=== PATIENT | female | born 1970 | race Caucasian/White ===

== ENCOUNTER 2021-09-29 02:35 | Outpatient (CLI) | payer OTHER, SELFPAY ==
[2021-09-29 10:42] LABS: ALT 25 U/L (14-59); AST 19 U/L (15-37); Alkaline Phosphatase 71 U/L (46-116); BUN 17 mg/dL (7-18); Bilirubin, Total 0.6 mg/dL (0.2-1.0); CREATININE 0.8 mg/dL (0.55-1.02); Calcium 9.8 mg/dL (8.5-10.1); Calculated LDL 128 mg/dL (<100); Chloride 104 mmol/L (98-107); Cholesterol 212 mg/dL (<200); Glucose 90 mg/dL (74-106); HDL Cholesterol 70 mg/dL (40-60); Potassium 4.7 mmol/L (3.5-5.1); Sodium 140 mmol/L (136-145); Total Protein 6.7 g/dL (6.4-8.2); Triglyceride 72 mg/dL (<150)
== END 2021-09-29 02:36 | disposition home or self-care (01) ==
LOC: LBO 02:35
DX: Z00.00 Encounter for general adult medical examination without abnormal findings (principal); Z13.220 Encounter for screening for lipoid disorders
CPT/HCPCS: 36415; 80053; 80061

== ENCOUNTER 2021-11-03 12:25 | Outpatient (REF) | payer BC, SELFPAY ==
--- NOTE | 2021-11-03 11:20 | PAPFT_PTH ---
PATIENT: Asia Carney LOC: [facility] U#:[id number] AGE/SX: 51/F ROOM: RE11/03/[address]: Ny Conner APRN : 1970 BED: DIS: 11/03/2021 SPEC #: [id number] RECD: 11/03/21 17:56 STATUS: AGGIE REKarthik #: [id number] BHUPINDER: 11/03/21 11:[address]: Ny Conner DEPT: [facility] Cytology RECD BY: Denise Garcia Tissues: 1 - CX/ENDOCX FOR PAP SMEARS Procedures: PAP THIN PREP/UVM Screening HPV DNA PROBE Comments: [id number]
== END 2021-11-03 12:26 | disposition home or self-care (01) ==
LOC: LBN 12:25
DX: Z12.4 Encounter for screening for malignant neoplasm of cervix (principal); Z11.51 Encounter for screening for human papillomavirus (HPV)
CPT/HCPCS: 88142; 87624

== ENCOUNTER 2021-12-23 03:07 | Outpatient (CLI) | payer OTHER, BC, SELFPAY ==
--- NOTE | 2021-12-23 06:15 | DI.MAMMO_ITS ---
Exam(s) MG MAMMO SCREENING 60 MIN DUR EXAM: MG MAMMO SCREENING 60 MIN DUR CLINICAL HISTORY: breast cancer screening,Z12.39 IMPLANTS TECHNIQUE: Bilateral full field digital CC and MLO mammographic images were obtained with 3D tomosyn thesis and utilizing computer aided detection (CAD). COMPARISON: Available for comparison. FINDINGS: Masses/Architectural Distortion: None seen. The patient has bilateral breast implants. Microcalcifications: No suspicious pleomorphic-type are seen. Skin Thickening/Nipple Retraction: None. IMPRESSION: 1. No significant interval change with no specific features of malignancy noted. 2. Unless there is more urgent need, screening mammography is recommended, as per [employer] guidelines. BI-RADS Category 1 - Negative Breast Density - Category C - Heterogeneously dense Breast density category C or D implies that the patient has dense breast tissue. Dense breast tissue is very common and is not abnormal but dense breast tissue can make it harder to find cancer on a ma mmogram. Also, dense breast tissue may increase their breast cancer risk. This information about the result of the mammogram report was provided to the patient to raise their awareness. Use this report when you speak with the patient about their risks for breast cancer, which includes their family hist ory. At that time, you may recommend for more screening tests (Ultrasound or MRI) as they might be us eful based on their risk. A negative radiographic report should not delay biopsy if a dominant or clinically suspicious mass is present. Up to ten percent of cancers are not identified on mammography. A negative report may reinforce clinical impression. Adenosis and dense breasts may obscure an underlying neoplasm. False positive reports average 6 to 10%. Patient will receive a letter notifying them of these results.
--- NOTE | 2021-12-23 06:15 | DI.US_ITS ---
Exam(s) US SOFT TISSUE EXTREMITY EXAM: US SOFT TISSUE EXTREMITY CLINICAL HISTORY: Known Lipoma L ant. should/upper breast - see scan,D17.1. TECHNIQUE: Ultrasound was performed using standard protocol. COMPARISON: No exams were available for comparison FINDINGS: Sonographic assessment utilizing grayscale and color Doppler imaging was performed and targeted to th e area of clinical concern. Submitted images reveal a relatively well-defined 3.9 x 1.5 x 1.5 cm round-slightly ovoid mass which is relatively isoechoic compared to the surrounding musculature of the shoulder.. This is not a cyst . Does not have typical appearance of a lipoma, being less hyperechoic than a atypical lipoma. Exhi bits neutral through transmission. IMPRESSION: As above. Recommend follow-up MRI. DATA REPOSITORY:
== END 2021-12-23 03:27 ==
DX: D17.1 Benign lipomatous neoplasm of skin and subcutaneous tissue of trunk (principal); Z12.31 Encounter for screening mammogram for malignant neoplasm of breast; R92.8 Other abnormal and inconclusive findings on diagnostic imaging of breast
CPT/HCPCS: 76881; 77063; 77067

== ENCOUNTER → 2022-01-17 03:34 | Outpatient (CLI) | payer OTHER, BC, SELFPAY ==
--- NOTE | 2022-01-17 07:30 | DI.MRI_ITS ---
Exam(s) MR CHEST WO/W EXAM: MR CHEST WO/W CLINICAL HISTORY: Previously thought to be a lipoma(outside facility),chest mass,r22.2 TECHNIQUE: Multiplanar multisequence MRI of the left chest wall was performed. CONTRAST MATERIAL: IV Contrast: 14 ML of Dotarem contrast administered. COMPARISON: US US SOFT TISSUE EXTREMITY from 12/23/2021 FINDINGS: A marker was placed on the area of concern. The patient has a left breast implant. Musculature: The muscles show normal signal and size. No significant muscular fatty atrophy. No int ramuscular mass. Bones: The bones show normal signal. No osseous mass is identified. Soft tissues: The subcutaneous fat is of normal signal. There is an ovoid fat signal intensity nonen hancing mass in the subcutaneous tissues corresponding to the palpable abnormality. It measures 1.5 x 1.2 x 1.3 cm its signal characteristics are consistent with a lipoma.No suspicious soft tissue mass es are seen. No significant adenopathy is present. Enhancement: No abnormal enhancing masses are seen. IMPRESSION: 1. 1.5 x 1.2 x 1.3 cm lipoma in the subcutaneous tissues corresponding to the placement of the marker . 2. No suspicious muscular, soft tissue or osseous masses. DATA REPOSITORY:
[2022-01-17] MEDS: Normal Saline Flush 10 ML SYR IVP (12:23)
[2022-01-17] MEDS: Gadoterate meglumine 20 ML VIAL 14 ML IVP (12:23)
== END ==
DX: R93.89 Abnormal findings on diagnostic imaging of other specified body structures (principal); R22.2 Localized swelling, mass and lump, trunk; Z98.82 Breast implant status; D17.1 Benign lipomatous neoplasm of skin and subcutaneous tissue of trunk
CPT/HCPCS: 71552

== ENCOUNTER 2022-02-21 09:31 | Day surgery (SDC) | payer OTHER, BC, SELFPAY ==
--- NOTE | 2022-02-20 12:37 | W.PM.DSUDISC ---
Discharge Plan Disposition Patient Disposition: HOME Condition: Good Discharge Details Reason For Visit: lipoma removal Attending Provider: Dannielle Braswell Primary Care Provider: Ny Conner Home Meds and New Rx's Prescriptions: New tramadol [Ultram] 50 mg tablet 50 mg PO Q6H PRN (Reason: pain (scale score 7-10)) Qty: 7 0RF Rx Instructions: will cause constipation Continued magnesium 250 mg tablet 250 mg PO DAILY 0RF cholecalciferol (vitamin D3) 50 mcg (2,000 unit) capsule 50 mcg PO DAILY 0RF omega 7-hdq-iyh-fish oil [Fish Oil] 1,000 mg (120 mg-180 mg) capsule 1 cap PO DAILY 0RF calcium carbonate [Calcium 500] 500 mg calcium (1,250 mg) tablet,chewable 500 mg PO DAILY 0RF polyethylene glycol 3350 17 gram/dose powder 238 g PO ONCE Qty: 238 0RF Rx Instructions: take per colonoscopy instructions bisacodyl [Dulcolax (bisacodyl)] 5 mg tablet,delayed release (DR/EC) 5 mg PO ONCE Qty: 4 0RF Rx Instructions: take per colonoscopy instructions ibuprofen [Advil] 200 mg tablet See Rx Instructions PO .COMPLEX PRN0RF Rx Instructions: PO PRN; cyanocobalamin (vitamin B-12) 1,000 mcg capsule See Rx Instructions PO DAILY 0RF Rx Instructions: PO daily; ferrous sulfate [Feosol] 325 mg (65 mg iron) tablet See Rx Instructions PO DAILY 0RF Rx Instructions: PO daily; ascorbate calcium (vitamin C) 500 mg tablet See Rx Instructions PO DAILY 0RF Rx Instructions: PO daily; estradiol 0.01 % (0.1 mg/gram) cream 1 g vaginal DAILY Qty: 42.5 6RF Rx Instructions: nightly for 14 days; then 2x per week Discharge Instructions Additional Instructions: Wound Care Instruction Pain Control Use ice!? Ice keeps the swelling down and swelling is what causes pain.? Never apply ice directly to the skin.? Wrap it in a towel or cloth.? Apply ice 20 minutes on and 20 minutes off for pain control.? Use as needed. Take Tylenol 500 mg by mouth with food every 4 hours as needed for pain. Or ibuprofen 600 mg by mouth with food every 6 hours as needed for pain.? Do not take Tylenol if you have a history of heavy drinking, hepatitis C or liver problems.? Do not take ibuprofen if you have a history of stomach ulcers/problems, bleeding problem or kidney issues. You do have a prescription for ultram (which is a mild narcotic) for pain >7. ? Always wash your hands before touching your incision. ? Keep the incision clean, dry, and out of water, keep the incision out of water. ? Do not to pick at the scabs. Scabs help protect the wound. ? You can take a shower in 24 hours and wash the incision with soap and water. Pat dry/don?t scrub. It?s OK to wash around the incision. But don?t spray water directly on it. ? Pat stitches dry if they get wet. Don't rub. ? Check the incision site daily for pain, redness, drainage, swelling, or separation of the incision edges. ? Make sure any clothing that touches the incision is loose-fitting. This will prevent rubbing. If the incision is on the head, keep your child from wearing caps or other head coverings. These may rub against the incision. As your incision heals, the skin may appear pink or red. It may also feel slightly bumpy or raised. This is called a healing ridge. Over time, the color should fade and the raised skin will become less noticeable. ? When to seek medical care Call your healthcare provider right away if you have any of these: ? More pain, redness, swelling, bleeding, or foul-smelling discharge around the incision area ? Fever of 101?F (38.3?C) or higher, or as directed by your child's healthcare provider ? Shaking chills ? Vomiting or nausea that doesn?t go away ? Numbness, coldness, or tingling around the incision area, or changes in skin color ? Opening of the sutures or wound -Stitches or izaiah that come apart or fall out or surgical tape falls off before 7 days, or as directed by your healthcare provider ? ?[facility]: [phone] F/u W/ Dr. Braswell 03/02 @ 11am for suture removal ? Activity:: See above Remove Dressings/Wound Care:: 24 hours Shower/Bathe:: 24 hours Diet:: As Tolerated Discharge Orders Discharge Orders: Discharge Order (Routine); Ordered 02/20/22 Ordered By: Dannielle Braswell
[2022-02-21 09:45] VITALS: PULSE 58; RESP 16; TEMP 36.2; O2SAT 10
--- NOTE | 2022-02-21 16:12 | SOFT_PTH ---
PATIENT: Asia Carney LOC: [facility] U#:[id number] AGE/SX: 51/F ROOM: RE02/21/[address]: Dannielle Braswell : 1970 BED: DIS: 02/21/2022 SPEC #: [id number] RECD: 02/21/22 17:13 STATUS: AGGIE REKarthik #: [id number] BHUPINDER: 02/21/22 16:[address]: Dannielle Braswell DEPT: Surgical Specimen RECD BY: Denise Garcia ENTERED: 02/21/22 17:15 SP TYPE: SOFT OTHR DR: Ny Conner APRN Tissues: 1 - SKIN BIOPSY(SHAVE/PUNCH) 2 - SOFT TISSUE MISC (INC. LIPOMA) Procedures: GROSS AND MICRO LEVEL 3 Comments: [id number]
[2022-02-21] MEDS: Lidocaine 1% Multi-Dose W/EPI 1/100,000 50 ML VIAL (16:30)
[2022-02-21 16:35] VITALS: BP 128/69; PULSE 70; RESP 16; TEMP 36.3; O2SAT 100
--- NOTE | 2022-02-22 16:46 | ROE_ITS ---
Date of service: 02/21/22 Time of Service: 16:46 Operative Note Operative Note DATE OF PROCEDURE: 02/21/22 PRE-OP DIAGNOSIS: Sebaceous cyst and lipoma POST-OP DIAGNOSIS: same PROCEDURE: Excision of posterior left shoulder sebaceous cyst. Excision of anterior left shoulder lipoma. SURGEON: Dannielle Braswell ANESTHESIA TYPE: Local By Surgeon Refer to Anesthesia Record ESTIMATED BLOOD LOSS: 3 PATHOLOGY: other COMPLICATIONS: None Patient was transported to: same day Procedure Description: The patient is here today for excision of the anterior left shoulder lipoma. She also notes that she has a what feels like to be a sebaceous cyst in the posterior aspect of the left shoulder and she would like this removed as well. Informed consent is obtained explaining risks and benefits of the procedure including but not limited to: Bleeding, infection, scarring, recurrence, need for removal of more tissue, reaction to the local anesthetics, poor cosmesis, and other on 4 told complications. Patient was marked in preop area. She is brought to the operative room suite. She is positioned in the prone position. She is prepped and draped in the usual sterile fashion using ChloraPrep scrub solution. Timeout is performed. 5 cc of 1% lidocaine is used to anesthetize the area of the left posterior soft tissue lesion. It is approximately 1.5 x 0.5 cm. 2.5 cm incision is made the lesion is dissected out. It is sent to pathology. The wound is closed with 2 stitches of 3-0 Prolene. Sterile Band- Aid is applied. Patient is then repositioned in the supine position. She is reprepped and draped using a ChloraPrep scrub solution. The lipoma in the left shoulder clavicle pectoral area is attended to next. Is anesthetized with 10 cc of 1% lidocaine. It is approximately 3 x 2 cm. A centimeter incision is made. It is dissected out with a combination of sharp dissection and electrocautery. Cautery is used to provide hemostasis. There appears to be mature lipoma. It is sent for pathology. Deep tissues approximated with 3-0 Vicryl and skin is approximated with 3-0 Prolene. Sterile compression dressing is applied. Patient tolerated procedure well without complication and transferred back to same day surgery. She is given instructions in wound care, activity, warning signs, and she has a follow-up appointment with my clinic in 1 week's time. Please see discharge instructions.
== END 2022-02-21 17:04 | disposition home or self-care (01) ==
PROVIDERS: Visit Provider Surgery
PROC: (CPT 23071; principal; 2022-02-21 13:30)
DX: L72.3 Sebaceous cyst (principal); D17.39 Benign lipomatous neoplasm of skin and subcutaneous tissue of other sites
CPT/HCPCS: 23071; 11402; 88304; 88305

== ENCOUNTER 2022-03-06 07:36 | Day surgery (SDC) | payer OTHER, SELFPAY ==
--- NOTE | 2022-03-06 06:49 | W.COLOREPORT ---
Colonoscopy Report Date of procedure: 03/06/22 Pre-op diagnosis general: Colon Cancer Screening and Family history Post-op diagnosis procedure note: other (cecal polyp) Procedure: Colonoscopy with polypectomy Surgeon: Bonita Genao Anesthesia Type: General:No Airway Estimated blood loss (mL): 3 Pathology: other (cecal polyp) Complications: None Disposition: same day Indications: The patient is here for Colonoscopy pre-op.?She reports? a family history of rectal cancer in her father at the age of 78.?She has not had any bowel habit changes. -Discussed colonoscopy bowel prep as well as the procedure. Discussed possible complications of the procedure to include bleeding, pain, perforation, missed small lesion/polyp, sore throat, aspiration and adverse reaction to the medications. Questions were answered to patient?s satisfaction. No guarantees were implied or given.? Prep: Miralax/Dulcolax Procedure Start Time: 09:05 Procedure End Time: 09:31 Retraction Time: 12 minutes Findings: One small sessile polyp Procedure Description: After informed consent was obtained the patient was taken to the procedure room and placed in a left decubitous position. Monitors were applied and a time out was done. The patients name, date of , procedure, allergies to medications and metal in their body was reviewed. The patient was then sedated. Once sedated and comfortable a rectal exam was done. External exam was normal. Internal exam revealed a normal sphincter tone and no palpable masses. The scope was then introduced and retro-flexed. No internal hemorrhoids, polyps or masses were identified on retro-flexion. The scope was then advanced to the cecum without difficulty. The ileocecal vlave and appendiceal orifice were identified. The prep was adequate. The scope was then slowly retracted over 12 minutes back into the rectum. Polyps were removed with cold forceps in the cecum. There was no diverticulosis noted. The scope was removed and the patient was woken up and taken back to Same day surgery in stable condition. The patient tolerated the procedure well and there were no immediate complications. Follow up: The patient should follow up in 5 years unless they develop changes in bowel habits or other new gastrointestinal complaints.
--- NOTE | 2022-03-06 06:50 | W.PM.DSUDISC ---
Discharge Plan Disposition Patient Disposition: HOME Condition: Good Discharge Details Reason For Visit: Colonoscopy Attending Provider: Bonita Genao Primary Care Provider: Ny Conner Home Meds and New Rx's Prescriptions: Continued magnesium 250 mg tablet 250 mg PO DAILY cholecalciferol (vitamin D3) 50 mcg (2,000 unit) capsule 50 mcg PO DAILY omega 0-efu-hqa-fish oil [Fish Oil] 1,000 mg (120 mg-180 mg) capsule 1 cap PO DAILY calcium carbonate [Calcium 500] 500 mg calcium (1,250 mg) tablet,chewable 500 mg PO DAILY ibuprofen [Advil] 200 mg tablet See Rx Instructions PO .COMPLEX PRN Rx Instructions: PO PRN; cyanocobalamin (vitamin B-12) 1,000 mcg capsule See Rx Instructions PO DAILY Rx Instructions: PO daily; ferrous sulfate [Feosol] 325 mg (65 mg iron) tablet See Rx Instructions PO DAILY Rx Instructions: PO daily; ascorbate calcium (vitamin C) 500 mg tablet See Rx Instructions PO DAILY Rx Instructions: PO daily; estradiol 0.01 % (0.1 mg/gram) cream 1 g vaginal DAILY Qty: 42.5 6RF Rx Instructions: nightly for 14 days; then 2x per week Discontinued polyethylene glycol 3350 17 gram/dose powder 238 g PO ONCE Qty: 238 0RF Rx Instructions: take per colonoscopy instructions bisacodyl [Dulcolax (bisacodyl)] 5 mg tablet,delayed release (DR/EC) 5 mg PO ONCE Qty: 4 0RF Rx Instructions: take per colonoscopy instructions Discharge Instructions Instructions: Colorectal Polyps (DC) Additional Instructions: Findings: One small polyp Follow up: 5 years Please call if you develop: fevers >101.5 Nausea or Vomiting Abdominal pain that is not transient Rectal bleeding that is more then a tbsp A hard abdomen and inability to pass gas DAY SURGERY UNIT POST ENDOSCOPY INSTRUCTIONS Instructions for everyone who is given Anesthesia: For your safety, please do the following for the next 24 Hours: a. Do not drive or operate dangerous equipment b. Do not drink alcohol beverages or use any recreational drugs for the first 24 hours or while taking pain medications. The medications in your body may have a reaction that can be dangerous. c. Do not make any important decisions or sign any important papers 1. Generally there are no restrictions on your activity after a day or so has gone by, but you may feel a bit fatigued for a few days. 2. After you arrive home you may have a light meal and return to a normal diet as you can tolerate it without feeling sick to your stomach. 3. After surgery, you may feel pain or discomfort. This should be only transient, but if it persists please contact your doctor. 4. If there are any questions regarding the findings of your procedure, please feel free to contact your doctor. 6. If you are unable to contact your doctor with a problem, contact the hospital at [phone]. 7. Continue all your regular medications unless directed otherwise. I understand the above instructions and have no questions. Signature of Patient or Responsible Adult Escort Date/Time Name of Responsible Adult Escort Signature of Nurse Date/Time Activity:: Activity as Tolerated Diet:: As Tolerated Discharge Orders Discharge Orders: Discharge Order (Routine); Ordered 03/06/22 Ordered By: Bonita Genao
[2022-03-06 07:58] VITALS: BP 116/71; PULSE 57; RESP 16; TEMP 36.7; O2SAT 99
[2022-03-06] MEDS: Lactated Ringers 1,000 ML 80 ML IV (08:25)
--- NOTE | 2022-03-06 08:30 | W.ANESPRE ---
General Info Date of Service Date Performed: 03/06/22 Height: 5 ft 7 in Weight: 65.4 kg Body Mass Index (BMI): 22.6 Surgical Procedure: Operation Date: 03/06/22 10:20 Proposed Procedure Side Surgeon p Colonoscopy Bonita Genao MD Meds Allergies and Home Medications Allergies Allergy/AdvReac Type Severity Reaction Status Date / Time No Known Allergies Allergy Unverified 03/03/22 10:18 Home Medication Medication Instructions Recorded ascorbate calcium (vitamin C) 500 See Rx Instructions PO DAILY 08/01/21 mg tablet cyanocobalamin (vitamin B-12) See Rx Instructions PO DAILY 08/01/21 1,000 mcg capsule ferrous sulfate 325 mg (65 mg See Rx Instructions PO DAILY 08/01/21 iron) tablet (Feosol) ibuprofen 200 mg tablet (Advil) See Rx Instructions PO .COMPLEX PRN 08/01/21 estradiol 0.01% (0.1 mg/gram) 1 g vaginal DAILY CREAM for 11/11/21 vaginal cream vaginal atrophy #42.5 grams bisacodyl 5 mg tablet,delayed 5 mg PO ONCE colonscopy bowel prep 02/17/22 release (Dulcolax (bisacodyl)) #4 tabs calcium carbonate 500 mg calcium 500 mg PO DAILY 02/17/22 (1,250 mg) chewable tablet (Calcium 500) cholecalciferol (vitamin D3) 50 50 mcg PO DAILY 02/17/22 mcg (2,000 unit) capsule magnesium 250 mg tablet 250 mg PO DAILY 02/17/22 omega 1-ltj-dzf-fish oil 1,000 mg 1 cap PO DAILY 02/17/22 (120 mg-180 mg) capsule (Fish Oil) polyethylene glycol 3350 17 238 g PO ONCE colonoscopy prep 02/17/22 gram/dose oral powder #238 grams Current Visit Medications: Current Medications Generic Name Dose Route Start Last Admin Trade Name Freq PRN Reason Stop Dose Admin Hyoscyamine Sulfate 0.125 mg 03/06/22 06:50 Hyoscyamine 0.125 Mg Sl/Oral/Chew SL DIRECTED PRN Ringer's Solution 1,000 mls @ 80 mls/hr 03/06/22 06:00 03/06/22 08:25 IV 04/02/22 23:59 80 mls/hr INFUSION PELON Administration IV Miscellaneous Supplies 1 each 03/06/22 06:00 Iv Access IV 04/02/22 23:59 DIRECTED PELON Ondansetron HCl 4 mg 03/06/22 06:50 Ondansetron 4 Mg/2 Ml Vial IVP Q4H PRN PRN Nausea / Vomiting Sodium Chloride 0 ml 03/06/22 06:00 Normal Saline Flush 10 Ml Syr IV 04/02/22 23:59 PRN PRN Sodium Chloride 0 ml 03/06/22 06:00 Normal Saline 10 Ml Vial IJ 04/02/22 23:59 DIRECTED PRN Sterile Water 0 ml 03/06/22 06:00 Water,Injection,Sterile 10 Ml Vial IJ 04/02/22 23:59 DIRECTED PRN PFSH Active Problems Active Problems: Problem Status Onset Code Lipoma of anterior chest wall D17.1 Lesion of subcutaneous tissue L98.9 External auditory canal pruritus L29.9 Impacted cerumen, bilateral H61.23 Screening cholesterol level Z13.220 Annual physical exam Z00.00 Sinusitis J32.9 Family history of colon cancer Z80.0 Colon cancer screening Z12.11 Lipoma of breast D17.1 Anemia D64.9 Premature menopause ~11/19/20 E28.319 Medical History Medical History Comments:: Pt had lipomas x2 removed on 02/21/22. Left Shoulder. Small band aid insitu on back left shoulder, large bandaid on front left shoulder. OK to lie on left side, with care. Surgical History Surgical History History of augmentation mammoplasty (~10/15/00) Tobacco Smoking/Tobacco Use Status: Never Passive smoking exposure: Yes Second hand exposure: Yes Alcohol Alcohol Intake: current Alcohol intake frequency: a few times a month Substance Use Substance use type: does not use Vital Signs and Lab Results Vital Signs Most Recent Vital Signs in EMR: Most Recent Vital Signs Temp Pulse Resp BP Pulse Ox 36.7 C 57 L 16 116/71 99 03/06/22 07:58 03/06/22 07:58 03/06/22 07:58 03/06/22 07:58 03/06/22 07:58 Lab Results Blood Type / Crossmatch: No Data to Display Complete Blood Count: No Data to Display Complete Metabolic Panel: No Data to Display Liver Function Panel: No Data to Display Coagulation Panel: No Data to Display Cardiac Panel: No Data to Display Arterial Blood Gas: No Data to Display Venous Blood Gas: No Data to Display Pancreas Panel: No Data to Display Thyroid Panel: No Data to Display Infectious Disease: No Data to Display Blood Cultures: No Data to Display Toxicology Panel: No Data to Display Panel: No Data to Display Anesthesia Assessment and Plan Anesthesia History Personal History: No History of Anesthesia Complications Family History: No Family History of Anesthesia Complications Exercise Tolerance Exercise Tolerance: Metabolic Equivalents>4 Pertinent Negatives Pertinent Negatives: No Symptoms of GERD, No Major Cardiovascular Symptoms or Complaints, No Major Pulmonary Symptoms or Complaints and No History of CVA/TIA Cardiac & Pulmonary Exam Cardiac Exam: Normal S1/S2 Heart Sounds Pulmonary Exam: Clear Bilateral Breath Sounds Implantable Cardiac Device Does patient have a Pacemaker or an ICD?: No Airway Exam Known Difficult Airway: No Mallampati Class: 2 Mouth Opening: Normal (> 3cm) Thyromental Distance: Greater than 3 cm Neck Range of Motion: Full ROM Neck Circumference: Normal Teeth Condition: Normal Dentition ASA Classification ASA Score: ASA 2 Emergency Case?: No NPO Status NPO Status: NPO Clears >2 hours, Solids >8 hours Status Status: Not Relevant due to Medical History Anesthesia Plan Resuscitation Status: Full Code Anesthesia Technique: General Anesthesia Airway Planned: Natural Airway Monitors Used: Standard Monitors
[2022-03-06 08:51] VITALS: BMI 22.6
--- NOTE | 2022-03-06 09:20 | BOWEL_PTH ---
PATIENT: Asia Carney LOC: [facility] U#:[id number] AGE/SX: 51/F ROOM: RE03/06/[address]: Bonita Genao MD : 1970 BED: DIS: 03/06/2022 SPEC #: [id number] RECD: 03/06/22 12:06 STATUS: AGGIE RE #: [id number] BHUPINDER: 03/06/22 09:[address]: Bonita Genao DEPT: Surgical Specimen RECD BY: Denise Garcia ENTERED: 03/06/22 12:07 SP TYPE: Bowel OTHR DR: Ny Conner APRN Tissues: 1 - BIOPSY BOWEL Procedures: GROSS AND MICRO LEVEL 4 Comments: [id number]
[2022-03-06 09:36] VITALS: BP 110/73; PULSE 44; RESP 16; TEMP 36.1; O2SAT 99
--- NOTE | 2022-03-06 09:46 | W.ANESPOSTOP ---
Postoperative Evaluation Date, Time and Location Date Performed: 03/06/22 Time Performed: 09:36 Patient Location: Day Surgery Unit Vital Signs Most Recent Imported Vital Signs: Most Recent Vital Signs Temp Pulse Resp BP Pulse Ox 36.1 C L 44 L 16 116/71 99 03/06/22 09:36 03/06/22 09:36 03/06/22 07:58 03/06/22 07:58 03/06/22 07:58 Pain Score Most Recent Pain Score: Most Recent Pain Score Pain Level 0 03/06/22 07:58 Assessment Mental Status: Awake (Alert & Oriented to Patient Baseline) Airway and Respiratory Function: Patent airway with normal (patient baseline) respiratory exam Cardiovascular Function: Hemodynamically Stable Hydration Status: Adequately Hydrated Nausea & Vomiting: No Nausea or Vomiting Pain: Pt. Denies Any Pain Peripheral Nerve Block: Patient did not receive a nerve block
[2022-03-06 10:00] VITALS: BP 110/77; PULSE 50; RESP 18; TEMP 35.9; O2SAT 100
== END 2022-03-06 10:30 | disposition home or self-care (01) ==
PROVIDERS: Visit Provider Surgery
PROC: 0DJD8ZZ Inspection of Lower Intestinal Tract, Via Natural or Artificial Opening Endoscopic (ICD-10-PCS; CPT 45378; principal; 2022-03-06 10:15)
DX: Z12.11 Encounter for screening for malignant neoplasm of colon (principal); Z80.0 Family history of malignant neoplasm of digestive organs; K63.5 Polyp of colon
CPT/HCPCS: 45380; 88305

== ENCOUNTER 2023-01-12 03:00 | Outpatient (CLI) | payer OTHER, SELFPAY ==
[2023-01-12 14:00] LABS: ALT 39 U/L (14-59); AST 28 U/L (15-37); Alkaline Phosphatase 75 U/L (46-116); Anion Gap 6.6 mmol/L (3-11); BUN 31 mg/dL (7-18); Bilirubin, Total 0.4 mg/dL (0.2-1.0); CO2 31.4 mmol/L (21.0-32.0); Calcium 9.4 mg/dL (8.5-10.1); Chloride 103 mmol/L (98-107); Estimated GFR 67.78 (mL/min/1.73m2); Glucose 95 mg/dL (74-106); Sodium 141 mmol/L (136-145); Total Protein 6.9 g/dL (6.4-8.2)
== END 2023-01-12 03:01 | disposition home or self-care (01) ==
LOC: LBO 03:00
PROVIDERS: PCP Nurse Practitioner Family; Visit Provider Nurse Practitioner Family
DX: Z00.00 Encounter for general adult medical examination without abnormal findings (principal); D64.9 Anemia, unspecified
CPT/HCPCS: 36415; 80053

== ENCOUNTER 2023-08-06 03:43 | Outpatient (CLI) | payer OTHER, SELFPAY ==
[2023-08-06 12:38] LABS: Anion Gap 7.9 mmol/L (3-11); BUN 24 mg/dL (7-18); CO2 28.1 mmol/L (21.0-32.0); CREATININE 0.9 mg/dL (0.55-1.02); Calcium 9.8 mg/dL (8.5-10.1); Chloride 104 mmol/L (98-107); Estimated GFR 76.44 (mL/min/1.73m2); Glucose 97 mg/dL (74-106); Potassium 4.4 mmol/L (3.5-5.1); Sodium 140 mmol/L (136-145)
== END 2023-08-06 03:44 | disposition home or self-care (01) ==
PROVIDERS: PCP Nurse Practitioner Family; Visit Provider Nurse Practitioner Family
DX: Z13.1 Encounter for screening for diabetes mellitus (principal)
CPT/HCPCS: 36415; 80048

== ENCOUNTER → 2023-11-02 00:30 | Outpatient (CLI) | payer OTHER, SELFPAY ==
--- NOTE | 2023-11-02 07:30 | DI.MAMMO_ITS ---
Exam(s) MG MAMMO SCREENING 60 MIN DUR EXAM: MG MAMMO SCREENING 60 MIN DUR CLINICAL HISTORY: breast cancer screening,implants,z12.39. TECHNIQUE: Bilateral full field digital CC and MLO mammographic images were obtained with 3D tomosyn thesis and utilizing computer aided detection (CAD). COMPARISON: Prior mammograms were reviewed. FINDINGS: Again noted are bilateral retropectoral saline implants. Fibroglandular tissue pattern is again noted be moderately dense. There are no CAD designations. There are no new spiculated masses nor malignant appearing microcalcification groups. There is no significant architectural distortion nor skin thickening-retraction. IMPRESSION: No radiographic evidence of malignancy. BI-RADS Category 1 - Negative Breast Density - Category C - Heterogeneously dense Breast density Category C or D implies that the patient has dense breast tissue. Dense breast tissue can make it harder to find cancer on a mammogram. Dense breast tissue is also associated with an incr eased risk of breast cancer. This information about the result of the mammogram report was provided to the patient to raise their awareness. Use this report when you speak with the patient about their risks for breast cancer, which includes their family history. At that time, you may recommend additional screening tests (Ultrasoun d or MRI) as these tests may add significant information. A negative radiographic report should not delay biopsy if a dominant or clinically suspicious mass is present. Up to ten percent of cancers are not identified on mammography. A negative report may reinforce clinical impression. Adenosis and dense breasts may obscure an underlying neoplasm. False positive reports average 6 to 10%. Patient will receive a letter notifying them of these results.
== END ==
PROVIDERS: PCP Nurse Practitioner Family; Visit Provider Nurse Practitioner Family
DX: Z12.31 Encounter for screening mammogram for malignant neoplasm of breast (principal)
CPT/HCPCS: 77063; 77067

== ENCOUNTER 2024-07-22 09:32 | Outpatient (REF) | payer OTHER, SELFPAY ==
[2024-07-22 12:19] LABS: Bilirubin Negative (Negative); Blood Moderate (Negative); Clarity Cloudy (Clear); Glucose Negative (Negative); Ketones Negative (Negative); Leukocyte Esterase Moderate (Negative); Nitrite Negative (Negative); Specific Gravity 1.015 (1.005-1.025); Urobilinogen 0.2 mg/dL (Up to 0.2); pH 7.5 (5-8)
[2024-07-22 12:36] LABS: Bacteria Few HPF (Negative); C & S Indicated? Yes; Crystals Negative HPF (Negative); Epithelial Cells Rare HPF (Negative); Mucus Negative (Negative); WBC >50 HPF (0-5)
== END 2024-07-22 09:33 | disposition home or self-care (01) ==
LOC: LBN 09:32
PROVIDERS: PCP Nurse Practitioner Family; Visit Provider Nurse Practitioner Family
DX: R39.9 Unspecified symptoms and signs involving the genitourinary system (principal); R82.89 Other abnormal findings on cytological and histological examination of urine
CPT/HCPCS: 81003; 81015; 87086

== ENCOUNTER 2024-10-14 15:35 | Outpatient (REF) | payer OTHER, SELFPAY ==
[2024-10-14 21:08] LABS: Bilirubin Negative (Negative); Blood Moderate (Negative); Clarity Cloudy (Clear); Glucose Negative (Negative); Ketones Negative (Negative); Leukocyte Esterase Large (Negative); Nitrite Negative (Negative); Urobilinogen 0.2 mg/dL (Up to 0.2); pH 5.5 (5-8)
[2024-10-14 21:20] LABS: C & S Indicated? Yes; WBC >50 HPF (0-5)
== END 2024-10-14 15:36 | disposition home or self-care (01) ==
LOC: LBN 15:35
PROVIDERS: PCP Nurse Practitioner Family; Visit Provider Nurse Practitioner Family
DX: N39.0 Urinary tract infection, site not specified (principal)
CPT/HCPCS: 87077; 81003; 81015; 87086; 87186

== ENCOUNTER 2025-02-17 00:22 | Outpatient (CLI) | payer OTHER, SELFPAY ==
--- NOTE | 2025-02-17 07:00 | DI.MAMMO_ITS ---
Exam(s) MG MAMMO SCREENING 60 MIN DUR EXAM: MG MAMMO SCREENING 60 MIN DUR CLINICAL HISTORY: breast cancer screening/has breast implants,Z12.39. TECHNIQUE: Bilateral full field digital CC and MLO mammographic images were obtained with 3D tomosyn thesis and utilizing computer aided detection (CAD). Both conventional and implant displacement [place] d views were performed COMPARISON: Prior mammograms were reviewed. Patient has saline implants since 2000 FINDINGS: Again noted are bilateral retropectoral saline implants. No obvious rupture The fibroglandular tissue pattern is again noted be moderately dense. There are no CAD designations. There are no new spiculated masses nor malignant appearing microcalcification groups. There is no significant architectural distortion nor skin thickening-retraction. IMPRESSION: No radiographic evidence of malignancy. BI-RADS Category 1 - Negative Breast Density - Category C - The breast are heterogeneously dense, which may obscure small masses. Breast density Category C or D implies that the patient has dense breast tissue. Dense breast tissue can make it harder to find cancer on a mammogram. Dense breast tissue is also associated with an incr eased risk of breast cancer. This information about the result of the mammogram report was provided to the patient to raise their awareness. Use this report when you speak with the patient about their risks for breast cancer, which includes their family history. At that time, you may recommend additional screening tests (Ultrasoun d or MRI) as these tests may add significant information. A negative radiographic report should not delay biopsy if a dominant or clinically suspicious mass is present. Up to ten percent of cancers are not identified on mammography. A negative report may reinforce clinical impression. Adenosis and dense breasts may obscure an underlying neoplasm. False positive reports average 6 to 10%. Patient will receive a letter notifying them of these results.
== END 2025-02-17 00:42 ==
LOC: DI 00:22
PROVIDERS: PCP Nurse Practitioner Family; Visit Provider Nurse Practitioner Family
DX: Z12.31 Encounter for screening mammogram for malignant neoplasm of breast (principal); R92.333 Mammographic heterogeneous density, bilateral breasts
CPT/HCPCS: 77063; 77067